=== PATIENT | female | born 1955 | race Caucasian/White ===

== ENCOUNTER 2023-02-18 09:30 | Outpatient (CLI) | payer MEDICARE | END 2023-02-18 09:31 | disposition home or self-care (01) | LOC: CSHCT 09:30 | PROVIDERS: ATTEND Internal Medicine Hematology & Oncology | DX: C50.812 Malignant neoplasm of overlapping sites of left female breast (principal); Z92.3 Personal history of irradiation; J98.4 Other disorders of lung | CPT/HCPCS: 71260; 74177 ==

== ENCOUNTER 2023-09-30 08:58 | Outpatient (CLI) | payer MEDICARE | END 2023-09-30 08:59 | disposition home or self-care (01) | LOC: CSHCT 08:58 | PROVIDERS: ATTEND Internal Medicine Hematology & Oncology | DX: C50.812 Malignant neoplasm of overlapping sites of left female breast (principal) | CPT/HCPCS: 71260; 74177; 82565 ==

== ENCOUNTER 2025-02-23 13:26 | Outpatient (CLI) | payer MEDICARE | END 2025-02-23 13:27 | disposition home or self-care (01) | LOC: CSHMAMMO 13:26 | PROVIDERS: ATTEND Specialist | DX: Z08 Encounter for follow-up examination after completed treatment for malignant neoplasm (principal); Z85.3 Personal history of malignant neoplasm of breast | CPT/HCPCS: 77066; G0279 ==